=== PATIENT | female | born 1950 | race Caucasian/White ===

== ENCOUNTER → 2017-03-05 | Outpatient (CLI) | payer OTHER ==
[~2017-03-05] MED LIST: ACETAMINOPHEN-1 EAC1 PO; AZITHROMYCIN 2250 MG PO; B12INJ IM; CELEXA10 MG PO; DESYREL150 MG; HYDROCODONE-APA1 TA1 PO; IBUPROFEN 400400 M2 PO; IBUPROFEN 600600 M1 PO; INFED100 MG/2 M IJ; MEDROLDOSEPACK PO; NOHOMEMEDICATIONS; NORCO 5-325 TA1 EACH PO; PHENERGAN 25 MG25 M1 PO; ROBAXIN500 MG PO; TRAZODONE 150150 M1 PO; UNICOMPLEX M TA1 TA1 PO; VICODIN 5-3001 EACH PO; VITAMIN D1000 UNI1 PO; XANAX 0.5 MG0.5 MG; XANAX 0.5 MG0.5 MG PO; ZYRTEC10 MG PO
[2017-03-05 15:15] LABS: CALCIUM 8.6 mg/dL (8.5-10.1); CREATININE 0.8 mg/dL (0.6-1.0); POTASSIUM 3.2 mmol/L (3.5-5.1)
[2017-03-05 15:19] LABS: ALBUMIN 3.6 g/dL (3.4-5.0); MAGNESIUM 1.8 mg/dL (1.8-2.4); TOTAL BILIRUBIN 1.2 mg/dL (<0.1-1.0); TOTAL PROTEIN 6.8 g/dL (6.4-8.2)
== END ==
LOC: LABMALL 13:50
PROVIDERS: Nurse Practitioner Family
DX: R25.2 Cramp and spasm (principal)

== ENCOUNTER → 2017-03-31 | Outpatient (CLI) | payer OTHER ==
[2017-03-31 09:16] LABS: % SATURATION 34 % (20-39); IRON 91 ug/dL (50-170); TIBC 264 ug/dL (250-450); UIBC 173 ug/dL
== END ==
LOC: LABMALL 08:02
PROVIDERS: Internal Medicine Hematology & Oncology
DX: D50.9 Iron deficiency anemia, unspecified (principal)

== ENCOUNTER → 2017-06-03 | Outpatient (CLI) | payer OTHER ==
[2017-06-03 08:41] LABS: LYMPHOCYTES 36.3 % (24.0-44.0)
[2017-06-03 08:43] LABS: ABSOLUTE NEUTROPHILS 4.1 thou/uL (1.4-8.2); BASOPHILS 0.7 % (0.0-2.0); EOSINOPHILS 1.8 % (0.0-3.0); HEMATOCRIT 39.7 % (37.0-47.0); HEMOGLOBIN 13.3 gm/dL (12.0-15.0); MCHC 33.6 g/dL (28.0-37.0); MCV 92.4 fL (80.0-100.0); MONOCYTES 8.9 % (1.0-8.0); PLATELET COUNT 259 thou/uL (150-400); POLYS 52.3 % (36.0-66.0); RDW 12.8 % (10.5-14.5); WBC 7.9 thou/uL (4.0-11.0)
[2017-06-03 08:44] LABS: MANUAL DIFF NO
== END ==
LOC: LABMALL 07:52
PROVIDERS: Internal Medicine Hematology & Oncology
DX: R53.82 Chronic fatigue, unspecified (principal)

== ENCOUNTER → 2017-12-30 | Outpatient (CLI) | payer OTHER ==
[~2017-12-30] MED LIST changes: +CYMBALTA30 MG PO; +MACROBID 100 M100 M1 PO; +NABUMETONE 750750 M1 PO; +SENNA-DOCUSATE1 EACH PO; +SKELAXIN 800 M800 M1 PO; +VALIUM5 MG PO; +ZOFRAN4 MG PO
== END ==
LOC: RAD 09:38
DX: Z12.31 Encounter for screening mammogram for malignant neoplasm of breast (principal); R07.89 Other chest pain

== ENCOUNTER 2018-03-10 10:41 | Inpatient (IN) | payer OTHER ==
[~2018-03-10] VITALS: Ht 167.6 cm; Wt 66.2 kg
--- NOTE | ~2018-03-10 | EKG ---
[address] [place] [address] ELECTROCARDIOGRAM REPORT Name: VASU MORROW Room #: 358-P [facility] IN .R.#: [id number] Admission: 03/10/18 Attend Phys: Portillo Bright MD Discharge: Date of : 48 Report #: [id number] THIS REPORT FOR: //name// [facility] ED Test Date: 2018-03-10 Test Time: 11:36:27 Pat Name: VASU MORROW Department: Room: Gender: F Car Mechanic: Zahraa FLETCHER : 1950 Requested By: Keith Moraes Order Number: [id number] MD: Scooter Russ Measurements Intervals [place] Rate: 69 P: 41 AR: 131 QRS: -21 QRSD: 90 T: 10 QT: 406 QTc: 435 Interpretive Statements Sinus rhythm Early R-wave progression Borderline T abnormalities, inferior leads Baseline wander in lead(s) III,V5 Compared to ECG 07/09/2016 12:49:17 No significant change was found Electronically Signed On 03-11-2018 7:40:38 CDT by Scooter Russ [email or web address] <ELECTRONICALLY SIGNED> By: Scooter Russ MD, [facility] 03/11/18 0740 [id number] [id number] Scooter Russ MD, [facility] /EPI
[~2018-03-10 10:41] MED LIST changes: -CYMBALTA30 MG PO; -MACROBID 100 M100 M1 PO; -NABUMETONE 750750 M1 PO; -SENNA-DOCUSATE1 EACH PO; -SKELAXIN 800 M800 M1 PO; -VALIUM5 MG PO; -ZOFRAN4 MG PO
[2018-03-10 10:51] VITALS: BP 154/97
[2018-03-10] MEDS ORDERED: CYMBALTA30 MG PO (11:09)
[2018-03-10 11:31] LABS: ABSOLUTE NEUTROPHILS 3.3 thou/uL (1.4-8.2); BASOPHILS 0.9 % (0.0-2.0); EOSINOPHILS 1.2 % (0.0-3.0); HEMATOCRIT 38.3 % (37.0-47.0); HEMOGLOBIN 12.9 gm/dL (12.0-15.0); LYMPHOCYTES 37.3 % (24.0-44.0); MCH 30.7 pg (26.0-34.0); MCHC 33.8 g/dL (28.0-37.0); MONOCYTES 9.1 % (1.0-8.0); PLATELET COUNT 244 thou/uL (150-400); POLYS 51.5 % (36.0-66.0); RBC 4.21 mil/uL (4.20-5.00); RDW 13.2 % (10.5-14.5); WBC 6.4 thou/uL (4.0-11.0)
[2018-03-10 11:38] LABS: CALCIUM 8.8 mg/dL (8.5-10.1); POTASSIUM 3.3 mmol/L (3.5-5.1)
[2018-03-10 11:44] LABS: ALBUMIN 3.2 g/dL (3.4-5.0); TOTAL PROTEIN 6.4 g/dL (6.4-8.2)
[2018-03-10 13:41] LABS: URINE BILIRUBIN NEGATIVE (Negative); URINE BLOOD NEGATIVE (Negative); URINE CLARITY CLEAR; URINE COLOR YELLOW; URINE GLUCOSE-RANDOM* NEGATIVE (Negative); URINE KETONES TRACE (Negative); URINE PROTEIN (DIPSTICK) NEGATIVE (Negative); URINE UROBILINOGEN 0.2 E.U./dl (0.2-1.0)
[2018-03-10 13:42] LABS: URINE LEUKOCYTES-REFLEX 2+ (Negative); URINE NITRITE-REFLEX POSITIVE (Negative)
[2018-03-10 14:00] LABS: SQUAMOUS 0-3 Few /LPF (0-3); URINE RBC 0-2 Rare /HPF (0-2); URINE WBC-REFLEX 6-15 Few /HPF (0-5)
[2018-03-10 14:03] LABS: MUCUS >6 Heavy strn/LPF (None Seen)
[2018-03-10 14:09] LABS: CASTS None Seen /LPF (None Seen)
[2018-03-10 14:11] LABS: CALCIUM OXALATE 4-10 Moderate /LPF (None Seen)
[2018-03-10] MEDS ORDERED: MACROBID 100 M100 M1 PO (14:16)
[2018-03-10] MEDS ORDERED: NORCO 5-325 TA1 EACH PO (14:16)
[2018-03-10] MEDS ORDERED: ZOFRAN4 MG PO (14:16)
[2018-03-10] MEDS ORDERED: SENNA-DOCUSATE1 EACH PO (14:17)
[2018-03-10 15:43] VITALS: BP 153/73
[2018-03-10 16:08] LABS: CHOLESTEROL 204 mg/dL (<200); HDL CHOLESTEROL 69 mg/dL (>40); LDL CHOLESTEROL 102 mg/dL (<100); TRIGLYCERIDE 167 mg/dL (<150); VLDL 33 mg/dL (<40)
[2018-03-10 16:13] LABS: SERUM ASSESSMENT Clear
[2018-03-10 16:31] VITALS: BP 157/73
[2018-03-10 17:00] VITALS: BP 151/84
[2018-03-11 03:24] LABS: HEMATOCRIT 33.7 % (37.0-47.0); HEMOGLOBIN 11.3 gm/dL (12.0-15.0); MCH 30.6 pg (26.0-34.0); MCHC 33.5 g/dL (28.0-37.0); MCV 91.4 fL (80.0-100.0); RBC 3.69 mil/uL (4.20-5.00); RDW 13.2 % (10.5-14.5); WBC 4.8 thou/uL (4.0-11.0)
[2018-03-11 03:31] LABS: CALCIUM 8.1 mg/dL (8.5-10.1); CREATININE 0.7 mg/dL (0.6-1.0)
[2018-03-11 04:18] VITALS: BP 155/50
[2018-03-11 08:03] VITALS: BP 109/66
[2018-03-11 17:14] VITALS: BP 163/75
[2018-03-11 19:56] VITALS: BP 112/64
[2018-03-12 11:05] LABS: HEMATOCRIT 34.4 % (37.0-47.0); HEMOGLOBIN 11.6 gm/dL (12.0-15.0); MCH 30.9 pg (26.0-34.0); MCHC 33.7 g/dL (28.0-37.0); MCV 91.6 fL (80.0-100.0); RBC 3.76 mil/uL (4.20-5.00); RDW 13.4 % (10.5-14.5); WBC 5.2 thou/uL (4.0-11.0)
[2018-03-12 11:21] LABS: ALBUMIN 2.7 g/dL (3.4-5.0); CALCIUM 8.7 mg/dL (8.5-10.1); CREATININE 0.7 mg/dL (0.6-1.0); POTASSIUM 3.4 mmol/L (3.5-5.1); TOTAL BILIRUBIN 0.6 mg/dL (<0.1-1.0); TOTAL PROTEIN 5.4 g/dL (6.4-8.2)
[2018-03-12 21:23] VITALS: BP 122/81
[2018-03-13 08:22] VITALS: BP 136/77
[2018-03-13 12:03] LABS: HEMATOCRIT 34.8 % (37.0-47.0); HEMOGLOBIN 11.9 gm/dL (12.0-15.0); MCH 31.2 pg (26.0-34.0); MCHC 34.2 g/dL (28.0-37.0); MCV 91.3 fL (80.0-100.0); RBC 3.82 mil/uL (4.20-5.00); RDW 13.4 % (10.5-14.5)
[2018-03-13 12:22] LABS: ALBUMIN 2.8 g/dL (3.4-5.0); CALCIUM 8.3 mg/dL (8.5-10.1); CREATININE 0.8 mg/dL (0.6-1.0); POTASSIUM 3.8 mmol/L (3.5-5.1); TOTAL BILIRUBIN 0.6 mg/dL (<0.1-1.0); TOTAL PROTEIN 5.7 g/dL (6.4-8.2)
[2018-03-13 13:09] VITALS: BP 136/77
== END 2018-03-13 14:22 | disposition home or self-care (01) | DRG 439 ==
LOC: ER 10:41 → 3W 15:28 → EROBS 15:28 → 3W 15:28 → SICU 03-11 17:11
PROVIDERS: Emergency Medicine; Hospitalist; Internal Medicine
DX: K85.90 Acute pancreatitis without necrosis or infection, unspecified (principal); N39.0 Urinary tract infection, site not specified; E87.6 Hypokalemia; K58.9 Irritable bowel syndrome, unspecified; E83.42 Hypomagnesemia; Z90.710 Acquired absence of both cervix and uterus; Z90.49 Acquired absence of other specified parts of digestive tract; Z87.442 Personal history of urinary calculi; Z79.899 Other long term (current) drug therapy; Z88.5 Allergy status to narcotic agent; Z88.7 Allergy status to serum and vaccine; Z88.8 Allergy status to other drugs, medicaments and biological substances; Z91.041 Radiographic dye allergy status; Z82.49 Family history of ischemic heart disease and other diseases of the circulatory system
CPT/HCPCS: 10779; 15001

== ENCOUNTER 2018-07-20 06:52 | Emergency (ER) | payer OTHER ==
[~2018-07-20] VITALS: Ht 167.6 cm; Wt 64.4 kg
--- NOTE | ~2018-07-20 | EKG ---
[address] [address] [facility] [place] [address] ELECTROCARDIOGRAM REPORT Name: VASU MORROW Room #: REG [facility]#: [id number] Admission: 07/20/18 Attend Phys: Discharge: Date of : 48 Report #: [id number] THIS REPORT FOR: //name// [facility] ED Test Date: 2018-07-20 Test Time: 07:05:19 Pat Name: VASU MORROW Department: Room: Gender: F Echocardiography Technologist: ROGER : 1950 Requested By: Citlalli Cunha Order Number: [id number] MD: Scooter Russ Measurements Intervals [place] Rate: 89 P: 3 MI: 124 QRS: -37 QRSD: 93 T: 55 QT: 374 QTc: 456 Interpretive Statements Sinus rhythm Abnormal R-wave progression, late transition Leftward axis Compared to ECG 03/10/2018 11:36:27 axis is shifted leftward Electronically Signed On 07-20-2018 7:39:00 CDT by Scooter Russ [email or web address] <ELECTRONICALLY SIGNED> By: Scooter Russ MD, [facility] 07/20/18 0739 4 4 Scooter Russ MD, [facility] /EPI
[~2018-07-20 06:52] MED LIST changes: +CYMBALTA30 MG PO; +MACROBID 100 M100 M1 PO; +SENNA-DOCUSATE1 EACH PO; +ZOFRAN4 MG PO
[2018-07-20] MEDS ORDERED: NABUMETONE 750750 M1 PO (07:16)
[2018-07-20] MEDS ORDERED: SKELAXIN 800 M800 M1 PO (07:17)
[2018-07-20 07:42] LABS: ABSOLUTE NEUTROPHILS 4.8 thou/uL (1.4-8.2); BASOPHILS 1.1 % (0.0-2.0); EOSINOPHILS 0.5 % (0.0-3.0); HEMATOCRIT 41.1 % (37.0-47.0); HEMOGLOBIN 14.4 gm/dL (12.0-15.0); LYMPHOCYTES 22.6 % (24.0-44.0); MCH 31.2 pg (26.0-34.0); MCHC 35.1 g/dL (28.0-37.0); MCV 88.9 fL (80.0-100.0); MONOCYTES 7.3 % (1.0-8.0); PLATELET COUNT 274 thou/uL (150-400); POLYS 68.5 % (36.0-66.0); RBC 4.62 mil/uL (4.20-5.00); RDW 13.1 % (10.5-14.5); WBC 6.9 thou/uL (4.0-11.0)
[2018-07-20 07:53] LABS: ANION GAP 10 mmol/L (7-16); BUN 15 mg/dL (7-18); CALCIUM 9.7 mg/dL (8.5-10.1); CHLORIDE 105 mmol/L (98-107); CO2 24 mmol/L (21-32); CREATININE 1.1 mg/dL (0.6-1.0); GLUCOSE 99 mg/dL (74-106); POTASSIUM 3.5 mmol/L (3.5-5.1); SODIUM 139 mmol/L (136-145)
[2018-07-20 08:01] LABS: ALBUMIN 3.5 g/dL (3.4-5.0); DIRECT BILIRUBIN 0.2 mg/dL (<0.1-0.3); LIPASE 141 U/L (73-393); SGOT 32 U/L (15-37); SGPT 35 U/L (30-65); TOTAL BILIRUBIN 0.9 mg/dL (<0.1-1.0); TOTAL PROTEIN 7.2 g/dL (6.4-8.2); TROPONIN-I <0.06 ng/mL (<0.06)
[2018-07-20] MEDS ORDERED: VALIUM5 MG PO (09:58)
[2018-07-20] MEDS ORDERED: NORCO 5-325 TA1 EACH PO (09:58)
== END 2018-07-20 10:20 | disposition home or self-care (01) ==
LOC: ER 06:52
PROVIDERS: Emergency Medicine
DX: S39.012A Strain of muscle, fascia and tendon of lower back, initial encounter (principal); G89.29 Other chronic pain; K58.9 Irritable bowel syndrome, unspecified; Z91.041 Radiographic dye allergy status; Z88.8 Allergy status to other drugs, medicaments and biological substances; Z88.5 Allergy status to narcotic agent; Z88.7 Allergy status to serum and vaccine; Z87.442 Personal history of urinary calculi; Z90.89 Acquired absence of other organs; Z90.10 Acquired absence of unspecified breast and nipple; Z90.49 Acquired absence of other specified parts of digestive tract; Z90.710 Acquired absence of both cervix and uterus; W06.XXXA Fall from bed, initial encounter; Y93.89 Activity, other specified; Y92.89 Other specified places as the place of occurrence of the external cause; Y99.8 Other external cause status

== ENCOUNTER 2018-10-27 13:48 | Inpatient (IN) | payer OTHER ==
[~2018-10-27] VITALS: Ht 167.6 cm; Wt 66.6 kg
[~2018-10-27 13:48] MED LIST changes: +NABUMETONE 750750 M1 PO; +SKELAXIN 800 M800 M1 PO; +VALIUM5 MG PO
[2018-10-27 13:49] VITALS: BP 95/62
--- NOTE | 2018-10-27 14:09 | NUR ---
ERP AT BEDSIDE TO EVALUATE
--- NOTE | 2018-10-27 14:15 | NUR ---
REPORT TO ROXANE
[2018-10-27] MEDS ORDERED: TRAZODONE HCL50 MG PO (14:21)
[2018-10-27] MEDS ORDERED: PRILOSEC OTC20 MG PO (14:23)
[2018-10-27 14:35] LABS: ABSOLUTE NEUTROPHILS 4.1 thou/uL (1.4-8.2); BASOPHILS 0.7 % (0.0-2.0); EOSINOPHILS 0.6 % (0.0-3.0); HEMATOCRIT 42.4 % (37.0-47.0); HEMOGLOBIN 14.2 gm/dL (12.0-15.0); LYMPHOCYTES 26.8 % (24.0-44.0); MCH 30.3 pg (26.0-34.0); MCHC 33.6 g/dL (28.0-37.0); MCV 90.3 fL (80.0-100.0); MONOCYTES 8.6 % (1.0-8.0); PLATELET COUNT 231 thou/uL (150-400); POLYS 63.3 % (36.0-66.0); RDW 12.8 % (10.5-14.5); WBC 6.6 thou/uL (4.0-11.0)
[2018-10-27 14:44] LABS: CALCIUM 9.4 mg/dL (8.5-10.1); CREATININE 1.2 mg/dL (0.6-1.0); POTASSIUM 3.5 mmol/L (3.5-5.1)
--- NOTE | 2018-10-27 14:45 | NUR ---
REASSUMED PT CARE
[2018-10-27 14:50] LABS: ALBUMIN 3.6 g/dL (3.4-5.0); TOTAL BILIRUBIN 1.7 mg/dL (<0.1-1.0); TOTAL PROTEIN 7.2 g/dL (6.4-8.2)
[2018-10-27 14:53] LABS: MAGNESIUM 1.6 mg/dL (1.8-2.4); TROPONIN-I <0.06 ng/mL (<0.06)
[2018-10-27 15:33] LABS: URINE BLOOD NEGATIVE (Negative); URINE CLARITY SL HAZY; URINE COLOR YELLOW; URINE GLUCOSE-RANDOM* TRACE (Negative); URINE KETONES 1+ (Negative); URINE LEUKOCYTES-REFLEX TRACE (Negative); URINE NITRITE-REFLEX POSITIVE (Negative); URINE PROTEIN (DIPSTICK) 1+ (Negative); URINE SPECIFIC GRAVITY >= 1.030 (1.005-1.035)
[2018-10-27 15:34] LABS: ICTOTEST (BILI CONFIRMATORY) Negative (Negative); URINE BILIRUBIN NEGATIVE (Negative)
[2018-10-27 15:54] LABS: CRYSTALS None Seen /LPF (None Seen); HYALINE CASTS >10 Many /LPF (None Seen); MUCUS >6 Heavy strn/LPF (None Seen); SQUAMOUS 0-3 Few /LPF (0-3); URINE RBC 0-2 Rare /HPF (0-2)
--- NOTE | 2018-10-27 16:06 | NUR ---
PATIENT GIVEN SPRITE PER ERP REQUEST. WILL MONITOR FOR TOLERANCE.
--- NOTE | 2018-10-27 16:41 | EKG ---
[address] [address] [address] [facility] [place] [address] ELECTROCARDIOGRAM REPORT Name: VASU MORROW Room #: REG [facility]#: [id number] Admission: 10/27/18 Attend Phys: Discharge: Date of : 48 Report #: [id number] THIS REPORT FOR: //name// [facility] ED Test Date: 2018-10-27 Test Time: 14:00:32 Pat Name: VASU MORROW Department: Room: Gender: F Supervisor Histology: NICHOLAS : 1950 Requested By: Janet Zuniga Order Number: [id number] MD: Richard James Measurements Intervals [place] Rate: 81 P: 77 SD: 124 QRS: -30 QRSD: 86 T: 62 QT: 362 QTc: 421 Interpretive Statements Sinus rhythm Left axis deviation Baseline wander in lead(s) V3 Compared to ECG 07/20/2018 07:05:19 No significant changes Electronically Signed On 10-27-2018 16:41:21 DOUBLE NEEDLE STITCHER by Richard James [email or web address] <ELECTRONICALLY SIGNED> By: Richard James MD 10/27/18 1641 1400 1400 Richard James MD /CJ
--- NOTE | 2018-10-27 17:10 | NUR ---
PHARMACY NOTIFIED OF OSCARN ORDER, AWAITING MEDS
--- NOTE | 2018-10-27 17:45 | NUR ---
2ND CALL TO PHARMACY FOR MEDS, SEE EMAR
[2018-10-27 18:15] VITALS: BP 111/63
--- NOTE | 2018-10-27 18:48 | NUR ---
PHARMACY STATES TUBING [facility] NOW
[2018-10-27 19:17] VITALS: BP 111/63
--- NOTE | 2018-10-27 19:17 | NUR ---
REPORT TO ELOISA EASLEY
[2018-10-27 21:00] VITALS: BP 117/60
[2018-10-28] MEDS ORDERED: ARTIFICIAL TEAR15 M1 OPHTHALMIC (01:52)
[2018-10-28 05:00] VITALS: BP 100/54
[2018-10-28 05:50] LABS: DIRECT BILIRUBIN 0.2 mg/dL (<0.1-0.3); TOTAL BILIRUBIN 1.1 mg/dL (<0.1-1.0)
--- NOTE | 2018-10-28 06:10 | NUR ---
PT ADMITTED TO ROOM 428 AT AROUND 2000HRS. PT IS ALERT AND ORIENTED. UP AD YVROSE. AFEBRILE. FLUIDS INFUSING. CONTINUES TO HAVE GUT DISCOMFORT, NAUSEA AND HAS VOMITED SEVERAL TIMES. NPO SINCE MIDNIGHT. PLAN FOR EGD TODAY.
[2018-10-28 07:11] VITALS: BP 105/49
--- NOTE | 2018-10-28 11:15 | NUR ---
Assess due to dx dysphagia. Chart reviewed, npo for EGD, has had n/v x 4 days prior to admit with 6 lb wt loss in 4 days. On IVF. Hx esophageal strictures. Will follow up again next week to determine in nutrition intervention is needed.
--- NOTE | 2018-10-28 12:27 | NUR ---
ASSESSMENT-PT LIVES AT HOME WITH HER DTR WHO WORKS IN PT ACCESS AT [facility]. PT WORKS HERE IN REGISTRATION. PT WALKS ON HER OWN AND DOES HER OWN ADLS. PT DRIVES. PT IS WORRIED BOUT BEING DISCHARGED HOME AND BEING ALONE AT HOME SINCE HER DTR WILL BE WORKING [employer]. INFORMED HER TO DISCUSS WITH THE . NO DC NEEDS ANTICIPATED. FOLLOWING TO ASSIST WITH DC PLANNING.
--- NOTE | 2018-10-28 15:58 | NUR ---
ASSUMED PT CARE AT 0700H. PT HAS NO S/S OF DISTRESS. PT IS A&O X4. PT STATES NO PAIN. PT HAD GONE FOR AN EGD. PT CURRENTLY STATES RELIEF. PT CONCERN OF WHEN TO EAT AND WHEN TO GO HOME TO ENJOY THE GAME ON WEEKEND. PT AMBULATES TO THE RESTROOM. PT HAS VALENTIN AT BEDSIDE. PT CURRENTLY AWAITING TRANSFER TO SICU. PT CALL LIGHT WITHIN REACH AND PT CONTINUES TO BE MONITORED FOR SAFETY.
[2018-10-28 16:15] VITALS: BP 123/77
--- NOTE | 2018-10-28 17:58 | NUR ---
PATIENT TRANSFERRED FROM [facility], REPORT FROM SHERRIE/RN. PATIENT ALERT AND ORIENTED X 4. PATIENT UP AD YVROSE TO BATHROOM. PATIENT HAS LEFT FOREARM IV WITH D5W 0.9%NS AT 125 CC/HR. PATIENT C/O PAIN AT THROAT AREA UPON ARRIVAL TO THE UNIT. PUREED DIET/THIN LIQUIDS DUE TO DYSPHAGIA, EGD DONE TODAY. WILL CONTINUE TO MONITOR.
[2018-10-28 19:01] VITALS: BP 143/70
--- NOTE | 2018-10-29 05:32 | NUR ---
ASSUMED CARE OF PATIENT AT 1900. VSS. ASSESSMENT COMPLETED AT 2100 AND IS DOCUMENTED. PT C/O THROAT IRRITATION THAT WAS SOATHED WITH FOOD AND ICE. LBM: 10/28. PT CONTINUES ON PUREED, THIN LIQUID DIET. TOLERATING WELL. UP AD YVROSE TO BATHROOM. LEFT FA PIV PATENT WITH D5W NS RUNNING AT 125 ML/HR. IV ABT INFUSED WITHOUT COMPLICATION. PT IS A "NIGHT OWL" AND REQUESTED TO RECEIVE SLEEPING MEDICATION AROUND 0200. PT IS CURRENTLY SLEEPING SOUNDLY IN BED IN NO ACUTE DISTRESS. ABLE TO CALL OUT APPROPRIATELY. CALL LIGHT WITHIN REACH. BED LOCKED AND IN LOWEST POSITION. WCTM.
--- NOTE | 2018-10-29 06:39 | NUR ---
THIS RN AGREES WITH HOSPITALITY HOUSE SUPERVISOR'S NOTES AND ASSESSMENT.
[2018-10-29 08:00] VITALS: BP 124/74
[2018-10-29] MEDS ORDERED: CARAFATE 1 GM TA1 G1 PO (08:40)
[2018-10-29 10:11] VITALS: BP 124/74
--- NOTE | 2018-10-29 10:31 | NUR ---
PATIENT CARE WAS ASSUMED AT 0730.PATIENT IS ALERT AND ORIENTED X4.PATIENT IS ABLE TO AMBULATE ON HER OWN.PT HAS FLUIDS INFUSING IN IV.PATIENT HAS HEADACHE, WAS GIVEN TYLENOL, TEMP IS 97.7.PATIENT STATED THAT SHE FEELS LIKE SHE IS STARTING A FEVER.WILL CONTINUE TO MONITOR PATIENT.CALL LIGHT,PHONE, AND PERSONAL BELONGINGS ARE WITHIN REACH.WILL CONTINUE TO MONITOR PATIENT.
--- NOTE | 2018-10-29 15:48 | NUR ---
Patient was discharged to go home with self care.Patient discharge paperwork was given to patient, along with education on new medication.pt has no questions at this time.IV was taken out gauze was placed.Patient put her clothes on and gathered all of her personal belongings.Patient was walked to ER by WOOL HAT FORMING MACHINE TENDER.Patient will be taken home via CAB.
== END 2018-10-29 15:53 | disposition home or self-care (01) | DRG 394 ==
LOC: ER 13:48 → 4E 16:44 → EROBS 16:44 → 4E 19:18 → ENTRNSPT 10-28 17:10 → SICU 10-28 17:20
PROVIDERS: Internal Medicine Gastroenterology; Physician Assistant; ADMIT Hospitalist
PROC: 0DC68ZZ Extirpation of Matter from Stomach, Via Natural or Artificial Opening Endoscopic (ICD-10-PCS; principal; 2018-10-28)
DX: T18.128A Food in esophagus causing other injury, initial encounter (principal); N39.0 Urinary tract infection, site not specified; K90.9 Intestinal malabsorption, unspecified; T18.2XXA Foreign body in stomach, initial encounter; R13.10 Dysphagia, unspecified; G89.29 Other chronic pain; M54.9 Dorsalgia, unspecified; F32.9 Major depressive disorder, single episode, unspecified; K22.4 Dyskinesia of esophagus; Z90.49 Acquired absence of other specified parts of digestive tract; Z87.442 Personal history of urinary calculi; Z90.710 Acquired absence of both cervix and uterus; Z88.7 Allergy status to serum and vaccine; Z88.8 Allergy status to other drugs, medicaments and biological substances; Z88.6 Allergy status to analgesic agent; Z88.1 Allergy status to other antibiotic agents; Z91.041 Radiographic dye allergy status; Z80.0 Family history of malignant neoplasm of digestive organs; Z98.0 Intestinal bypass and anastomosis status; X58.XXXA Exposure to other specified factors, initial encounter; Y93.89 Activity, other specified; Y92.89 Other specified places as the place of occurrence of the external cause; Y99.8 Other external cause status
CPT/HCPCS: 10084; 15002; 62110; 62900; 70005

== ENCOUNTER → 2019-06-30 | Outpatient (CLI) | payer OTHER ==
[~2019-06-30] MED LIST changes: +ARTIFICIAL TEAR15 M1 OPHTHALMIC; +CARAFATE 1 GM TA1 G1 PO; +PRILOSEC OTC20 MG PO; +TRAZODONE HCL50 MG PO
== END ==
LOC: MRI 06-22 16:17
DX: M47.814 Spondylosis without myelopathy or radiculopathy, thoracic region (principal); M41.84 Other forms of scoliosis, thoracic region; M46.04 Spinal enthesopathy, thoracic region; M48.04 Spinal stenosis, thoracic region; M51.24 Other intervertebral disc displacement, thoracic region

== ENCOUNTER 2019-09-03 23:06 | Emergency (ER) | payer OTHER ==
[~2019-09-03] VITALS: Ht 167.6 cm; Wt 64.9 kg
[2019-09-04] MEDS ORDERED: MOBIC15 MG PO (01:08)
[2019-09-04] MEDS ORDERED: CYCLOBENZAPRINE5 MG PO (01:08)
[2019-09-04 01:39] VITALS: BP 139/77
== END 2019-09-04 01:40 | disposition home or self-care (01) ==
LOC: ER 23:06
DX: S20.212A Contusion of left front wall of thorax, initial encounter (principal); K58.9 Irritable bowel syndrome, unspecified; Z90.49 Acquired absence of other specified parts of digestive tract; Z90.89 Acquired absence of other organs; Z90.710 Acquired absence of both cervix and uterus; Z87.442 Personal history of urinary calculi; Z88.6 Allergy status to analgesic agent; Z88.5 Allergy status to narcotic agent; Z91.041 Radiographic dye allergy status; Z88.7 Allergy status to serum and vaccine; X50.0XXA Overexertion from strenuous movement or load, initial encounter; Y92.89 Other specified places as the place of occurrence of the external cause; Y93.89 Activity, other specified; Y99.8 Other external cause status

== ENCOUNTER 2019-11-17 04:18 | Emergency (ER) | payer OTHER ==
[~2019-11-17] VITALS: Ht 167.6 cm; Wt 63.5 kg
--- NOTE | ~2019-11-17 | EKG ---
[facility] [place] [address] ELECTROCARDIOGRAM REPORT Name: VASU MORROW Room #: DEP [facility]#: [id number] Admission: 11/17/19 Attend Phys: Discharge: 11/17/19 Date of : 48 Report #: [id number] THIS REPORT FOR: cc: Momo Ramirez MD, Brian M. MD Epiphany, Epiphany MD ~ THIS REPORT FOR: //name// [facility] ED Test Date: 2019-11-17 Test Time: 04:39:18 Pat Name: VASU MORROW Department: Room: Gender: Background Check Coordinator: [facility] : 1950 Requested By: Agustin Marques Order Number: [id number] MD: Measurements Intervals [place] Rate: 75 P: 49 MT: 134 QRS: -30 QRSD: 91 T: 10 QT: 405 QTc: 453 Interpretive Statements Sinus rhythm Abnormal R-wave progression, late transition Left ventricular hypertrophy No previous ECG available for comparison [email or web address] By: [id number] Epiphany MD Nicole /EPI
[~2019-11-17 04:18] MED LIST changes: +CYCLOBENZAPRINE5 MG PO; +MOBIC15 MG PO
[2019-11-17 05:16] LABS: ABSOLUTE NEUTROPHILS 3.7 thou/uL (1.4-8.2); BASOPHILS 0.9 % (0.0-2.0); EOSINOPHILS 0.9 % (0.0-3.0); HEMATOCRIT 36.7 % (37.0-47.0); LYMPHOCYTES 33.9 % (24.0-44.0); MCH 29.8 pg (26.0-34.0); MCHC 32.7 g/dL (28.0-37.0); MCV 91.2 fL (80.0-100.0); PLATELET COUNT 268 thou/uL (150-400); POLYS 55.3 % (36.0-66.0); RBC 4.03 mil/uL (4.20-5.00); WBC 6.7 thou/uL (4.0-11.0)
[2019-11-17 05:22] LABS: ANION GAP 11 mmol/L (7-16); BUN 17 mg/dL (7-18); CALCIUM 8.2 mg/dL (8.5-10.1); CHLORIDE 105 mmol/L (98-107); CO2 23 mmol/L (21-32); CREATININE 1.2 mg/dL (0.6-1.0); GLUCOSE 99 mg/dL (74-106); POTASSIUM 3.3 mmol/L (3.5-5.1); SODIUM 139 mmol/L (136-145)
[2019-11-17 05:29] LABS: MAGNESIUM 1.6 mg/dL (1.8-2.4); TROPONIN-I <0.06 ng/mL (<0.06)
[2019-11-17] MEDS ORDERED: MAG-OXIDE400 MG PO (06:30)
[2019-11-17] MEDS ORDERED: POTASSIUM20 PO (06:31)
[2019-11-17 06:55] VITALS: BP 104/59
== END 2019-11-17 06:57 | disposition home or self-care (01) ==
LOC: ER 04:18
PROVIDERS: Emergency Medicine
DX: E87.6 Hypokalemia (principal); E83.42 Hypomagnesemia; R55 Syncope and collapse; K58.9 Irritable bowel syndrome, unspecified; Z87.442 Personal history of urinary calculi; Z90.49 Acquired absence of other specified parts of digestive tract; Z90.710 Acquired absence of both cervix and uterus; Z91.041 Radiographic dye allergy status; Z88.6 Allergy status to analgesic agent; Z88.8 Allergy status to other drugs, medicaments and biological substances

== ENCOUNTER → 2020-03-28 | Outpatient (CLI) | payer OTHER ==
[~2020-03-28] MED LIST changes: +CYANOCOBAL1000 MCG/1 IM; +MAG-OXIDE400 MG PO; +MIRALAX17 GM PO; +POTASSIUM20 PO; +ROXIFOL-D TA500 UNIT PO; -VITAMIN D1000 UNI1 PO
[2020-03-28 08:55] VITALS: BP 137/90
[2020-03-28 09:49] VITALS: BP 137/90
[2020-03-28 09:50] VITALS: BP 153/71
[2020-03-28 10:35] VITALS: BP 147/67
--- NOTE | 2020-03-28 10:40 | NUR ---
HERE FOR 1ST OF 2 SCHEDULED INJECTAFER DOSES FOR IRON DEFICIENCY ANEMIA. DENIES ANY LOSS OF BLOOD. TEACHING DONE, INFUSION COMPLETED OVER ABOUT 30 MINUTES, PT TOLERATED WITHOUT INCIDENT, NO S/S REACTION, VSS. WATCHED FOR 30 MINUTES POST INFUSION THEN DISMISSED IN STABLE CONDITION. SCHEDULED TO RETURN AGAIN IN ONE WEEK.
== END ==
LOC: OPONC 08:18
PROVIDERS: ATTEND Internal Medicine Hematology & Oncology
DX: D50.9 Iron deficiency anemia, unspecified (principal)
CPT/HCPCS: 95000

== ENCOUNTER → 2020-04-04 | Outpatient (CLI) | payer OTHER ==
[2020-04-04 09:15] VITALS: BP 137/51
[2020-04-04 10:25] VITALS: BP 122/61
--- NOTE | 2020-04-04 10:42 | NUR ---
IN FOR 2ND INJECTAFER INFUSION. PATIENT STATED SHE HAS HAD ITCHING EVERY DAY SINCE GETTING 1ST INFUSION LAST WEEK. CALLED AND SPOKE WITH JALEN. RECEIVED ORDER FOR PREMEDS. GAVE BENADRYL AND TYLENOL AND WAITED 30 MINUTES. TOLERATED INFUSION WITHOUT INCIDENT. OBSERVED FOR 30 MINUTES. POST BP GOOD. REMOVED IV AND DISMISSED IN STABLE CONDITION.
== END ==
LOC: OPONC 08:13
PROVIDERS: ATTEND Internal Medicine Hematology & Oncology
DX: D50.9 Iron deficiency anemia, unspecified (principal)
CPT/HCPCS: 95000

== ENCOUNTER → 2021-04-18 | Outpatient (CLI) | payer OTHER ==
[~2021-04-18] MED LIST changes: +BENADRYL25 MG PO; +CEFDINIR300 MG PO; +DERMACINRX5000 UNI1 PO; +DESYREL150 MG PO; +FLEXERIL PO; +LEVOFLOXACIN750 MG PO; +PREDNISONE 10 M10 MG PO; -ROXIFOL-D TA500 UNIT PO; +VENTOLIN HFA 1818 GM INH; -XANAX 0.5 MG0.5 MG PO; +XANAX1 MG PO
[2021-04-18 08:43] LABS: ABSOLUTE NEUTROPHILS 4.8 thou/uL (1.4-8.2); EOSINOPHILS 1.3 % (0.0-3.0); HEMATOCRIT 38.3 % (37.0-47.0); HEMOGLOBIN 12.7 gm/dL (12.0-15.0); LYMPHOCYTES 31.3 % (24.0-44.0); MCH 30.8 pg (26.0-34.0); MCHC 33.1 g/dL (28.0-37.0); MONOCYTES 8.9 % (1.0-8.0); PLATELET COUNT 235 thou/uL (150-400); POLYS 57.5 % (36.0-66.0); RBC 4.12 mil/uL (4.20-5.00); RDW 12.8 % (10.5-14.5); WBC 8.4 thou/uL (4.0-11.0)
[2021-04-18 08:56] LABS: % SATURATION 24 % (20-39); IRON 59 ug/dL (50-170); TIBC 242 ug/dL (250-450)
[2021-04-18 08:57] LABS: ALBUMIN 3.2 g/dL (3.4-5.0); CREATININE 1.3 mg/dL (0.6-1.0); POTASSIUM 3.7 mmol/L (3.5-5.1); TOTAL BILIRUBIN 0.4 mg/dL (0.2-1.0); TOTAL PROTEIN 6.3 g/dL (6.4-8.2)
== END ==
LOC: LAB 07:06
PROVIDERS: ATTEND Internal Medicine Hematology & Oncology
DX: D50.8 Other iron deficiency anemias (principal); K90.89 Other intestinal malabsorption; R53.83 Other fatigue

== ENCOUNTER 2021-06-07 03:05 | Emergency (ER) | payer OTHER ==
[~2021-06-07] VITALS: Ht 167.6 cm; Wt 68.0 kg
[2021-06-07 03:08] VITALS: BP 127/89
[2021-06-07] MEDS ORDERED: PROVIGIL 100 M100 MG PO (03:15)
[2021-06-07] MEDS ORDERED: SODIUM SULFACE TOP (03:51)
== END 2021-06-07 04:00 | disposition home or self-care (01) ==
LOC: ER 03:05
DX: R21 Rash and other nonspecific skin eruption (principal); F41.9 Anxiety disorder, unspecified; F32.9 Major depressive disorder, single episode, unspecified; Z90.89 Acquired absence of other organs; Z90.49 Acquired absence of other specified parts of digestive tract; Z90.710 Acquired absence of both cervix and uterus; Z79.899 Other long term (current) drug therapy; Z88.7 Allergy status to serum and vaccine; Z91.041 Radiographic dye allergy status; Z91.013 Allergy to seafood; Z88.6 Allergy status to analgesic agent; Z88.1 Allergy status to other antibiotic agents; Z88.5 Allergy status to narcotic agent; Z88.8 Allergy status to other drugs, medicaments and biological substances

== ENCOUNTER 2021-09-07 07:37 | Emergency (ER) | payer OTHER ==
[~2021-09-07] VITALS: Ht 167.6 cm; Wt 68.0 kg
[~2021-09-07 07:37] MED LIST changes: +PROVIGIL 100 M100 MG PO; +SODIUM SULFACE TOP
[2021-09-07] MEDS ORDERED: NORCO5 PO (08:52)
[2021-09-07 09:07] VITALS: BP 159/79
== END 2021-09-07 09:07 | disposition home or self-care (01) ==
LOC: ER 07:37
DX: S20.219A Contusion of unspecified front wall of thorax, initial encounter (principal); F41.9 Anxiety disorder, unspecified; F32.9 Major depressive disorder, single episode, unspecified; Z87.442 Personal history of urinary calculi; Z90.89 Acquired absence of other organs; Z90.49 Acquired absence of other specified parts of digestive tract; Z90.710 Acquired absence of both cervix and uterus; Z98.890 Other specified postprocedural states; Z79.891 Long term (current) use of opiate analgesic; Z79.899 Other long term (current) drug therapy; Z88.6 Allergy status to analgesic agent; Z91.041 Radiographic dye allergy status; Z88.5 Allergy status to narcotic agent; Z91.013 Allergy to seafood; Z88.7 Allergy status to serum and vaccine; Z88.8 Allergy status to other drugs, medicaments and biological substances; Z91.048 Other nonmedicinal substance allergy status; W22.8XXA Striking against or struck by other objects, initial encounter; Y93.89 Activity, other specified; Y92.89 Other specified places as the place of occurrence of the external cause; Y99.8 Other external cause status

== ENCOUNTER → 2021-11-14 | Outpatient (CLI) | payer OTHER ==
[~2021-11-14] MED LIST changes: +NORCO5 PO
[2021-11-14 08:16] LABS: URINE BILIRUBIN NEGATIVE (Negative); URINE BLOOD NEGATIVE (Negative); URINE CLARITY CLEAR; URINE COLOR YELLOW; URINE GLUCOSE-RANDOM* TRACE (Negative); URINE KETONES NEGATIVE (Negative); URINE LEUKOCYTES-REFLEX TRACE (Negative); URINE NITRITE-REFLEX NEGATIVE (Negative); URINE PROTEIN (DIPSTICK) NEGATIVE (Negative); URINE SPECIFIC GRAVITY >= 1.030 (1.005-1.035); URINE UROBILINOGEN 0.2 E.U./dl (0.2-1.0)
[2021-11-14 08:27] LABS: ABSOLUTE NEUTROPHILS 4.7 thou/uL (1.4-8.2); EOSINOPHILS 1.5 % (0.0-3.0); HEMATOCRIT 40.8 % (37.0-47.0); HEMOGLOBIN 13.4 gm/dL (12.0-15.0); LYMPHOCYTES 36.8 % (24.0-44.0); MCHC 32.8 g/dL (28.0-37.0); MCV 94.6 fL (80.0-100.0); PLATELET COUNT 285 thou/uL (150-400); POLYS 49.7 % (36.0-66.0); RBC 4.32 mil/uL (4.20-5.00); RDW 13.4 % (10.5-14.5); WBC 9.4 thou/uL (4.0-11.0)
[2021-11-14 08:38] LABS: ALBUMIN 3.4 g/dL (3.4-5.0); CALCIUM 8.4 mg/dL (8.5-10.1); POTASSIUM 3.9 mmol/L (3.5-5.1); TOTAL PROTEIN 6.9 g/dL (6.4-8.2)
[2021-11-14 09:03] LABS: FERRITIN 337 ng/mL (8-252)
[2021-11-15 07:12] LABS: GLYCOHEMOGLOBIN (HGB A1C) 5.3 % (4.8-5.6)
== END ==
LOC: LAB 06:43
PROVIDERS: ATTEND Internal Medicine Hematology & Oncology
DX: R30.0 Dysuria (principal); R53.83 Other fatigue